=== PATIENT | female | born 1960 | race Caucasian/White ===

== ENCOUNTER 2016-12-11 10:36 | Emergency (ER) | payer MEDICAID ==
[~2016-12-11] VITALS: Ht 142.2 cm; Wt 70.0 kg
[~2016-12-11 10:36] MED LIST: ENAL5TAB PO
[2016-12-11] MEDS ORDERED: KETOROLAC 60MG/2ML VIAL IM ONE (12:00)
[2016-12-11] MEDS ORDERED: ONDANSETRON 4MG ODT PO ONE (12:00)
[2016-12-11] MEDS ORDERED: MORPHINE SULFATE 4 MG/ML CPJ (NOT FOR IM USE) IV ONE (12:00)
[2016-12-11 14:00] VITALS: BP 137/65
== END 2016-12-11 14:39 | disposition home or self-care (01) ==
LOC: ER 12:13
DX: M54.12 Radiculopathy, cervical region (principal); E78.00 Pure hypercholesterolemia, unspecified; I10 Essential (primary) hypertension; G43.909 Migraine, unspecified, not intractable, without status migrainosus; Z87.11 Personal history of peptic ulcer disease
CPT/HCPCS: 71010; 72125; 73030; 73090; 73130; 96372; 99284; J1885; Q0162; Z7610

== ENCOUNTER 2017-05-01 17:03 | Emergency (ER) | payer MEDICAID, OTHER ==
[~2017-05-01] VITALS: Ht 144.8 cm; Wt 66.0 kg
[2017-05-01] MEDS ORDERED: IBUPROFEN 600MG TABLET PO ONE (22:45)
[2017-05-01 23:34] VITALS: BP 166/60
== END 2017-05-02 01:14 | disposition home or self-care (01) ==
LOC: ER 17:03
DX: S00.83XA Contusion of other part of head, initial encounter (principal); S40.012A Contusion of left shoulder, initial encounter; S20.219A Contusion of unspecified front wall of thorax, initial encounter; G43.909 Migraine, unspecified, not intractable, without status migrainosus; I10 Essential (primary) hypertension; E78.00 Pure hypercholesterolemia, unspecified; V49.9XXA Car occupant (driver) (passenger) injured in unspecified traffic accident, initial encounter; Y93.89 Activity, other specified; Y92.89 Other specified places as the place of occurrence of the external cause
CPT/HCPCS: 71010; 73030; 93005; 99284; Z7610

== ENCOUNTER 2019-07-03 11:09 | Emergency (ER) | payer MEDICAID, OTHER ==
[~2019-07-03] VITALS: Ht 139.7 cm; Wt 80.0 kg
[2019-07-03] MEDS ORDERED: KETOROLAC 30MG/ML VIAL IM ONE (12:00)
[2019-07-03 12:01] VITALS: BP 144/80
== END 2019-07-03 14:04 | disposition home or self-care (01) ==
LOC: ER 11:09
DX: M25.572 Pain in left ankle and joints of left foot (principal); E78.00 Pure hypercholesterolemia, unspecified; I10 Essential (primary) hypertension; G43.909 Migraine, unspecified, not intractable, without status migrainosus
CPT/HCPCS: 29515; 73610; 73630; 96372; 99283; J1885; Z7610